=== PATIENT | female | born 1980 | race Caucasian/White ===

== ENCOUNTER 2017-08-06 00:28 | Emergency (ER) | payer MEDICAID, OTHER ==
[2017-08-06] MEDS: HYDROCODONE/APAP (5/325) TAB PO (04:53)
[2017-08-06] MEDS: morphine 4 MG/ML VIAL IM (06:10)
== END 2017-08-06 06:15 | disposition home or self-care (01) ==
LOC: FTE 00:28
DX: M25.572 Pain in left ankle and joints of left foot (principal); M25.532 Pain in left wrist; I10 Essential (primary) hypertension; F17.210 Nicotine dependence, cigarettes, uncomplicated
CPT/HCPCS: 29125; 73110-LT; 73610; 99284-25